=== PATIENT | female | born 1995 | race Hispanic/Latino ===

== ENCOUNTER 2019-11-30 10:30 | Emergency (ER) | payer SELFPAY ==
[2019-11-30 11:08] VITALS: BP 119/57
== END 2019-11-30 10:55 | disposition left against medical advice (07) ==
LOC: ED 10:30
DX: R42 Dizziness and giddiness (principal); Z53.21 Procedure and treatment not carried out due to patient leaving prior to being seen by health care provider
CPT/HCPCS: 82962